=== PATIENT | male | born 1975 | race African-American/Black ===

== ENCOUNTER 2021-12-23 15:05 | Inpatient (IN) | payer SELFPAY ==
[~2021-12-23] VITALS: Ht 162.6 cm; Wt 94.8 kg
[2021-12-23 16:09] LABS: BASOPHILS % 1.1 % (0.0-2.0); EOSINOPHILS % 1.9 % (0.0-5.0); HEMATOCRIT. 40.9 % (42.0-52.0); HEMOGLOBIN. 13.3 g/dL (14.0-18.0); LYMPHOCYTES % 16.7 % (20.0-50.0); MEAN CORPUSCULAR HEMOGLOBIN 28.6 pg (28.0-32.0); MEAN PLATELET VOLUME 7.8 fl (7.4-10.4); MONOCYTES % 6.9 % (2.0-8.0); NEUTROPHILS % 73.4 % (40.0-76.0); PLATELET 398 x1000/uL (130-400); RED BLOOD CELL COUNT 4.65 mill/uL (4.7-6.1); RED CELL DISTRIBUTION WIDTH 13.4 % (11.6-14.6)
[2021-12-23 16:15] LABS: CHLORIDE 109 mEq/L (98-107)
[2021-12-23] MEDS ORDERED: FUROSEMIDE 20MG/2ML VIAL IVP ONE (16:45)
[2021-12-23] MEDS ORDERED: GUAIFENESIN 200MG/10ML SUGAR FREE UDC PO PRN (19:00)
[2021-12-23] MEDS ORDERED: CLONIDINE 0.1MG TABLET PO PRN (19:00)
[2021-12-23] MEDS ORDERED: HYDRALAZINE 20MG/ML VIAL IV PRN (19:00)
[2021-12-23] MEDS ORDERED: MAGNESIUM/ALUMINUM HYDROXIDE/SIMETHICONE 30ML UDC PO PRN (19:00)
[2021-12-23] MEDS ORDERED: ONDANSETRON HCL 4MG/2ML INJ IV PRN (19:00)
[2021-12-23] MEDS ORDERED: ZOLPIDEM TARTRATE 5MG TABLET PO PRN (19:00)
[2021-12-23] MEDS ORDERED: DIPHENHYDRAMINE 50MG/ML VIAL IV PRN (19:00)
[2021-12-23] MEDS ORDERED: ACETAMINOPHEN 325MG TABLET PO PRN ×2 (19:00)
[2021-12-23] MEDS: FUROSEMIDE 40MG/4ML VIAL IVP SCH (20:38)
[2021-12-23] MEDS ORDERED: ENOXAPARIN 40MG/0.4ML SYR SUBCUT SCH (21:00)
[2021-12-23] MEDS: SODIUM CHLORIDE 0.9% INJ 3ML FLUSH IVF SCH (22:00)
[2021-12-24] MEDS: SODIUM CHLORIDE 0.9% INJ 3ML FLUSH IVF SCH ×3 (06:49→20:40)
[2021-12-24] MEDS: FUROSEMIDE 40MG/4ML VIAL IVP SCH ×2 (07:30→18:12)
[2021-12-24] MEDS: LOSARTAN POTASSIUM 50 MG TABLET PO SCH (09:15)
[2021-12-24 11:07] VITALS: BP 126/82
[2021-12-24 12:13] VITALS: BP 117/77
[2021-12-24] MEDS: ASPIRIN 81MG TABLET PO SCH (12:32)
[2021-12-24] MEDS: CARVEDILOL 3.125 MG TABLET PO SCH ×2 (12:32→20:41)
[2021-12-24] MEDS: POTASSIUM CHLORIDE 20MEQ TABLET SR PO SCH (12:32)
[2021-12-24 15:55] LABS: CHLORIDE 106 mEq/L (98-107)
[2021-12-24 16:00] VITALS: BP 110/78
[2021-12-24 16:01] LABS: PHOSPHORUS 5.1 mg/dL (2.5-4.9)
[2021-12-24] MEDS: CLOTRIMAZOLE 1% CREAM 15GM TOP SCH (18:12)
[2021-12-24 20:00] VITALS: BP 104/71
[2021-12-24] MEDS: ENOXAPARIN 30MG/0.3ML SYR SUBCUT SCH (20:41)
[2021-12-25] VITALS: BP 104/80
[2021-12-25 04:00] VITALS: BP 104/76
[2021-12-25] MEDS: FUROSEMIDE 40MG/4ML VIAL IVP SCH ×2 (06:25→18:01)
[2021-12-25] MEDS: SODIUM CHLORIDE 0.9% INJ 3ML FLUSH IVF SCH ×3 (06:26→21:22)
[2021-12-25 08:00] VITALS: BP 140/82
[2021-12-25] MEDS: LOSARTAN POTASSIUM 50 MG TABLET PO SCH (08:56)
[2021-12-25] MEDS: ASPIRIN 81MG TABLET PO SCH (08:56)
[2021-12-25] MEDS: CARVEDILOL 3.125 MG TABLET PO SCH ×2 (08:57→21:00)
[2021-12-25] MEDS: POTASSIUM CHLORIDE 20MEQ TABLET SR PO SCH (08:57)
[2021-12-25] MEDS: CLOTRIMAZOLE 1% CREAM 15GM TOP SCH ×2 (08:57→17:11)
[2021-12-25] MEDS: ENOXAPARIN 30MG/0.3ML SYR SUBCUT SCH ×2 (08:57→21:22)
[2021-12-25 12:00] VITALS: BP 95/51
[2021-12-25 14:33] LABS: *AMPHETAMINES SCREEN URINE PRESUMTIVE POSITIVE (NEGATIVE); *BENZODIAZEPINES SCREEN URINE NEGATIVE (NEGATIVE); *COCAINE SCREEN URINE NEGATIVE (NEGATIVE)
[2021-12-25 14:34] LABS: CANNABINOID URINE SCREEN NEGATIVE (NEGATIVE); METHADONE URINE SCREEN NEGATIVE (NEGATIVE); OPIATES URINE SCREEN NEGATIVE (NEGATIVE); PHENCYCLIDINE URINE SCREEN NEGATIVE (NEGATIVE)
[2021-12-25 14:37] LABS: *BARBITURATES SCREEN URINE NEGATIVE (NEGATIVE)
[2021-12-25 16:00] VITALS: BP 120/79
[2021-12-25 20:00] VITALS: BP 98/62
[2021-12-26] VITALS: BP 109/67
[2021-12-26 04:00] VITALS: BP 103/61
[2021-12-26] MEDS: FUROSEMIDE 40MG/4ML VIAL IVP SCH ×2 (06:06→18:12)
[2021-12-26] MEDS: SODIUM CHLORIDE 0.9% INJ 3ML FLUSH IVF SCH ×2 (06:06→13:29)
[2021-12-26 07:47] LABS: CHLORIDE 102 mEq/L (98-107)
[2021-12-26 08:00] VITALS: BP 93/54
[2021-12-26] MEDS: CARVEDILOL 3.125 MG TABLET PO SCH (09:00)
[2021-12-26] MEDS: LOSARTAN POTASSIUM 50 MG TABLET PO SCH (09:00)
[2021-12-26] MEDS: ASPIRIN 81MG TABLET PO SCH (09:05)
[2021-12-26] MEDS: POTASSIUM CHLORIDE 20MEQ TABLET SR PO SCH (09:05)
[2021-12-26] MEDS: ENOXAPARIN 30MG/0.3ML SYR SUBCUT SCH (09:06)
[2021-12-26] MEDS: CLOTRIMAZOLE 1% CREAM 15GM TOP SCH ×2 (09:09→16:43)
[2021-12-26 12:00] VITALS: BP 95/54
[2021-12-26 16:00] VITALS: BP 124/64
[2021-12-26 17:20] VITALS: BP 124/64
== END 2021-12-26 18:10 | disposition home or self-care (01) | DRG 194 ==
LOC: ER 15:05 → MICUSO 18:22 → EDBEDREQ 18:25 → EDBEDREQTM 18:25 → ENRESERV 23:26 → 7EST 12-24 09:53
PROVIDERS: ADMIT Internal Medicine; ATTEND Internal Medicine
DX: I11.0 Hypertensive heart disease with heart failure (principal); N17.9 Acute kidney failure, unspecified; I50.23 Acute on chronic systolic (congestive) heart failure; I42.9 Cardiomyopathy, unspecified; F15.90 Other stimulant use, unspecified, uncomplicated; F17.210 Nicotine dependence, cigarettes, uncomplicated; I34.0 Nonrheumatic mitral (valve) insufficiency; Z79.899 Other long term (current) drug therapy
CPT/HCPCS: 36415; 71045; 80048; 80053; 80305; 83735; 83880; 84100; 84443; 84484; 85025; 93005; 93306; 93970; 99285; J1650; J1940

== ENCOUNTER 2022-02-24 02:00 | Inpatient (IN) | payer SELFPAY ==
[~2022-02-24] VITALS: Ht 162.6 cm; Wt 90.3 kg
[2022-02-24] MEDS ORDERED: FUROSEMIDE 40MG/4ML VIAL IV ONE (02:45)
[2022-02-24 03:09] LABS: BASOPHILS % 1.2 % (0.0-2.0); HEMOGLOBIN. 13.3 g/dL (14.0-18.0); LYMPHOCYTES % 8.8 % (20.0-50.0); MEAN CORPUSCULAR HEMOGLOBIN 27.9 pg (28.0-32.0); MEAN CORPUSCULAR VOLUME 87.9 fL (80.0-94.0); MEAN PLATELET VOLUME 7.8 fl (7.4-10.4); MONOCYTES % 7.2 % (2.0-8.0); NEUTROPHILS % 81.8 % (40.0-76.0); PLATELET 424 x1000/uL (130-400); RED BLOOD CELL COUNT 4.78 mill/uL (4.7-6.1); RED CELL DISTRIBUTION WIDTH 13.5 % (11.6-14.6)
[2022-02-24 03:51] LABS: CHLORIDE 105 mEq/L (98-107)
[2022-02-24 09:30] VITALS: BP 138/92
[2022-02-24 12:00] VITALS: BP 133/90
[2022-02-24] MEDS ORDERED: DOCUSATE SODIUM 100MG CAPSULE PO PRN (12:30)
[2022-02-24] MEDS ORDERED: HYDROCODONE/ACETAMINOPHEN 5/325MG TABLET PO PRN (12:30)
[2022-02-24] MEDS ORDERED: CLONIDINE 0.1MG TABLET PO PRN (12:30)
[2022-02-24] MEDS ORDERED: ACETAMINOPHEN 325MG TABLET PO PRN (12:30)
[2022-02-24] MEDS ORDERED: ONDANSETRON HCL 4MG/2ML INJ IV PRN (12:30)
[2022-02-24] MEDS ORDERED: DEXTROSE 50% WATER 50ML SYRINGE IV PRN ×2 (12:30)
[2022-02-24] MEDS ORDERED: MAGNESIUM/ALUMINUM HYDROXIDE/SIMETHICONE 30ML UDC PO PRN (12:30)
[2022-02-24] MEDS: INSULIN LISPRO 100 UNITS/ML SUBCUT SCH ×3 (13:06→20:40)
[2022-02-24 16:00] VITALS: BP 146/90
[2022-02-24] MEDS: BLOOD SUGAR DIAGNOSTIC STRIP TEST SCH ×2 (16:56→20:47)
[2022-02-24] MEDS: ENOXAPARIN 30MG/0.3ML SYR SUBCUT SCH (17:27)
[2022-02-24 18:28] LABS: CLARITY URINE CLEAR (CLEAR); COLOR URINE YELLOW (YELLOW); KETONES URINE NEGATIVE (NEGATIVE); LEUKOCYTE ESTERASE URINE NEGATIVE (NEGATIVE); NITRITE URINE NEGATIVE (NEGATIVE); OCCULT BLOOD URINE NEGATIVE (NEGATIVE); PROTEIN URINE NEGATIVE (NEGATIVE); SPECIFIC GRAVITY URINE 1.015 (1.005-1.030)
[2022-02-24] MEDS: FUROSEMIDE 40MG/4ML VIAL IVP SCH (18:39)
[2022-02-24 18:40] LABS: *AMPHETAMINES SCREEN URINE PRESUMTIVE POSITIVE (NEGATIVE); *BARBITURATES SCREEN URINE NEGATIVE (NEGATIVE); *BENZODIAZEPINES SCREEN URINE NEGATIVE (NEGATIVE); *COCAINE SCREEN URINE NEGATIVE (NEGATIVE); CANNABINOID URINE SCREEN NEGATIVE (NEGATIVE); METHADONE URINE SCREEN NEGATIVE (NEGATIVE); OPIATES URINE SCREEN NEGATIVE (NEGATIVE); PHENCYCLIDINE URINE SCREEN NEGATIVE (NEGATIVE)
[2022-02-24 20:00] VITALS: BP 115/75
[2022-02-24] MEDS: DILTIAZEM HCL 120MG CAPSULE CD 24HR PO SCH (20:39)
[2022-02-24 22:33] LABS: *AMPHETAMINES SCREEN URINE PRESUMTIVE POSITIVE (NEGATIVE); *BARBITURATES SCREEN URINE NEGATIVE (NEGATIVE); *BENZODIAZEPINES SCREEN URINE NEGATIVE (NEGATIVE); *COCAINE SCREEN URINE NEGATIVE (NEGATIVE); CANNABINOID URINE SCREEN NEGATIVE (NEGATIVE); METHADONE URINE SCREEN NEGATIVE (NEGATIVE); OPIATES URINE SCREEN NEGATIVE (NEGATIVE); PHENCYCLIDINE URINE SCREEN NEGATIVE (NEGATIVE)
[2022-02-25] VITALS: BP 131/78
[2022-02-25 04:00] VITALS: BP 122/84
[2022-02-25] MEDS: BLOOD SUGAR DIAGNOSTIC STRIP TEST SCH ×4 (06:42→21:00)
[2022-02-25] MEDS: INSULIN LISPRO 100 UNITS/ML SUBCUT SCH ×4 (06:42→22:48)
[2022-02-25] MEDS: OMEPRAZOLE 20MG CAPSULE EXTENDED RELEASE PO SCH (06:42)
[2022-02-25 08:00] VITALS: BP 107/55
[2022-02-25 08:31] LABS: BASOPHILS % 0.8 % (0.0-2.0); EOSINOPHILS % 0.9 % (0.0-5.0); HEMATOCRIT. 40.4 % (42.0-52.0); HEMOGLOBIN. 13.4 g/dL (14.0-18.0); LYMPHOCYTES % 11.8 % (20.0-50.0); MEAN CORPUSCULAR HEMOGLOBIN 28.8 pg (28.0-32.0); MEAN CORPUSCULAR VOLUME 87.3 fL (80.0-94.0); MEAN PLATELET VOLUME 7.8 fl (7.4-10.4); MONOCYTES % 12.2 % (2.0-8.0); NEUTROPHILS % 74.3 % (40.0-76.0); PLATELET 373 x1000/uL (130-400); RED BLOOD CELL COUNT 4.63 mill/uL (4.7-6.1); RED CELL DISTRIBUTION WIDTH 13.4 % (11.6-14.6)
[2022-02-25] MEDS: FUROSEMIDE 40MG/4ML VIAL IVP SCH (08:39)
[2022-02-25] MEDS: ENOXAPARIN 30MG/0.3ML SYR SUBCUT SCH ×3 (08:40→16:44)
[2022-02-25] MEDS: DILTIAZEM HCL 120MG CAPSULE CD 24HR PO SCH (08:40)
[2022-02-25] MEDS: LOSARTAN POTASSIUM 25 MG TABLET PO SCH (08:40)
[2022-02-25 08:46] LABS: CHLORIDE 101 mEq/L (98-107)
[2022-02-25 08:59] LABS: HDL CHOLESTEROL 37 mg/dL (40-59); LDL CHOLESTEROL 81 mg/dL (5-100); PHOSPHORUS 3.7 mg/dL (2.5-4.9); T4 FREE 0.89 ng/dL (0.76-1.46)
[2022-02-25 12:00] VITALS: BP 114/75
[2022-02-25 16:00] VITALS: BP 125/81
[2022-02-25] MEDS ORDERED: NALOXONE HCL 0.4MG/ML VIAL IV PRN (18:15)
[2022-02-25 20:00] VITALS: BP 108/74
[2022-02-26] VITALS: BP 102/62
[2022-02-26 04:00] VITALS: BP 131/55
[2022-02-26] MEDS: BLOOD SUGAR DIAGNOSTIC STRIP TEST SCH ×4 (05:14→19:59)
[2022-02-26] MEDS: INSULIN LISPRO 100 UNITS/ML SUBCUT SCH ×4 (05:47→21:22)
[2022-02-26] MEDS: OMEPRAZOLE 20MG CAPSULE EXTENDED RELEASE PO SCH (06:23)
[2022-02-26 07:56] LABS: BASOPHILS % 1.2 % (0.0-2.0); EOSINOPHILS % 2.2 % (0.0-5.0); HEMATOCRIT. 42.7 % (42.0-52.0); HEMOGLOBIN. 14.1 g/dL (14.0-18.0); LYMPHOCYTES % 22.9 % (20.0-50.0); MEAN CORPUSCULAR HEMOGLOBIN 28.9 pg (28.0-32.0); MEAN CORPUSCULAR VOLUME 87.3 fL (80.0-94.0); MEAN PLATELET VOLUME 7.6 fl (7.4-10.4); MONOCYTES % 13.6 % (2.0-8.0); NEUTROPHILS % 60.1 % (40.0-76.0); PLATELET 376 x1000/uL (130-400); RED BLOOD CELL COUNT 4.89 mill/uL (4.7-6.1); RED CELL DISTRIBUTION WIDTH 13.4 % (11.6-14.6)
[2022-02-26 08:00] VITALS: BP 115/84
[2022-02-26 08:03] LABS: CHLORIDE 104 mEq/L (98-107)
[2022-02-26] MEDS: FUROSEMIDE 40MG/4ML VIAL IVP SCH (08:23)
[2022-02-26] MEDS: LOSARTAN POTASSIUM 25 MG TABLET PO SCH (08:23)
[2022-02-26] MEDS: DILTIAZEM HCL 120MG CAPSULE CD 24HR PO SCH (08:23)
[2022-02-26] MEDS: ENOXAPARIN 30MG/0.3ML SYR SUBCUT SCH ×2 (08:23→16:19)
[2022-02-26 12:00] VITALS: BP 105/71
[2022-02-26 15:53] VITALS: BP 90/46
[2022-02-26 20:01] VITALS: BP 111/69
[2022-02-27] VITALS: BP 109/64
[2022-02-27 04:00] VITALS: BP 127/89
[2022-02-27] MEDS: BLOOD SUGAR DIAGNOSTIC STRIP TEST SCH (05:15)
[2022-02-27] MEDS: INSULIN LISPRO 100 UNITS/ML SUBCUT SCH (05:50)
[2022-02-27 07:00] LABS: BASOPHILS % 1.1 % (0.0-2.0); EOSINOPHILS % 3.5 % (0.0-5.0); HEMATOCRIT. 44.7 % (42.0-52.0); HEMOGLOBIN. 14.5 g/dL (14.0-18.0); LYMPHOCYTES % 29.6 % (20.0-50.0); MEAN CORPUSCULAR HEMOGLOBIN 28.7 pg (28.0-32.0); MEAN CORPUSCULAR VOLUME 88.7 fL (80.0-94.0); MEAN PLATELET VOLUME 7.8 fl (7.4-10.4); MONOCYTES % 10.2 % (2.0-8.0); NEUTROPHILS % 55.6 % (40.0-76.0); PLATELET 395 x1000/uL (130-400); RED BLOOD CELL COUNT 5.04 mill/uL (4.7-6.1); RED CELL DISTRIBUTION WIDTH 13.4 % (11.6-14.6)
[2022-02-27 07:36] LABS: CHLORIDE 106 mEq/L (98-107)
[2022-02-27 08:00] VITALS: BP 92/53
[2022-02-27] MEDS: DILTIAZEM HCL 120MG CAPSULE CD 24HR PO SCH (08:17)
[2022-02-27] MEDS: FUROSEMIDE 40MG/4ML VIAL IVP SCH (08:17)
[2022-02-27] MEDS: ENOXAPARIN 30MG/0.3ML SYR SUBCUT SCH (08:17)
[2022-02-27] MEDS ORDERED: FAMOTIDINE 20MG TABLET PO SCH (09:00)
[2022-02-27] MEDS ORDERED: FURO-151 MT (09:48)
[2022-02-27] MEDS ORDERED: LOSA25TA3 PO (09:48)
[2022-02-27 10:06] VITALS: BP 92/53
[2022-02-27] MEDS ORDERED: LOSARTAN POTASSIUM 25 MG TABLET PO SCH (21:00)
== END 2022-02-27 10:55 | disposition home or self-care (01) | DRG 194 ==
LOC: ER 02:00 → 8WST 04:44 → ENRESERV 07:19 → EDBEDREQTM 07:35 → EDBEDREQ 07:35
PROVIDERS: ADMIT Internal Medicine; ATTEND Internal Medicine
DX: I11.0 Hypertensive heart disease with heart failure (principal); J96.00 Acute respiratory failure, unspecified whether with hypoxia or hypercapnia; D72.829 Elevated white blood cell count, unspecified; E11.65 Type 2 diabetes mellitus with hyperglycemia; F15.90 Other stimulant use, unspecified, uncomplicated; R74.01 Elevation of levels of liver transaminase levels; I50.23 Acute on chronic systolic (congestive) heart failure; Z20.822 Contact with and (suspected) exposure to COVID-19; Z28.310 Unvaccinated for COVID-19
CPT/HCPCS: 36415; 71045; 76700; 80048; 80053; 80061; 80076; 80305; 81003; 82962; 83036; 83735; 83880; 84100; 84145; 84439; 84443; 84484; 85025; 87426; 93005; 93306; 93970; 99291; C9803; J1650; J1815; J1940